=== PATIENT | male | born 1965 | race Caucasian/White ===

== ENCOUNTER 2017-03-22 15:27 | Emergency (ER) | payer OTHER ==
[2017-03-22 15:37] VITALS: BP 130/79; PULSE 73; RESP 16; TEMP 98.1; O2SAT 95
[2017-03-22] MEDS ORDERED: TDAP ADULT 0.5 ML INJ (BOOSTRIX) IM ONE (16:28)
--- NOTE | 2017-03-22 17:04 | EDPHY ---
H & P Time Seen by Provider: 03/22/17 16:10 HPI/ROS: CHIEF COMPLAINT: Left forearm laceration HISTORY OF PRESENT ILLNESS: 51-year-old male with out-of-date tetanus sustained accidental multiple lacerations to his left volar forearm when he was at a construction site, fell through the floor short distance but impact his left volar forearm against some sheet metal sustaining multiple lacerations and abrasions. No paresthesia. No sensory motor deficit distally. No foreign body sensation. No glass. PHYSICAL EXAM (Prior to examination, patient consented to physical exam, hands were washed and my usual and customary physical exam procedures followed) 1) GENERAL: Well-developed, well-nourished, alert and oriented. Appears to be in no acute distress. 2) HEAD: Normocephalic 3) HEENT: sclera anicteric 4) LUNGS: Breathing comfortably. 5) SKIN: multiple discrete lacerations 6) MUSCULOSKELETAL: left volar forearm multiple abrasions and 6 discrete lacerations the largest of which measures 3 cm %times% 2. 7) NEUROLOGIC: Radial ulnar median nerve function intact distally. There is no motor deficits distally. Distal pulses are brisk with brisk capillary refill normal color normal temperature distally Smoking Status: Never smoked Constitutional: Initial Vital Signs Temperature (C) 36.7 C 03/22/17 15:30 Heart Rate 73 03/22/17 15:30 Respiratory Rate 16 03/22/17 15:30 Blood Pressure 130/79 H 03/22/17 15:30 O2 Sat (%) 95 03/22/17 15:30 O2 Delivery Mode Room Air Allergies/Adverse Reactions: Penicillins Allergy (Intermediate, Verified 03/22/17 15:37) Hives Home Medications: Medication Instructions Recorded NK [No Known Home Meds] 03/22/17 MDM/Departure - MDM Procedures: Procedure: Laceration repair. I explained the indications, risks and benefits for both laceration repair and anesthetic administration. Verbal consent was obtained from the patient . The laceration on the left forearm were anesthetized using 0.5% bupivicaine with epinephrine . After anesthetic administered the patient was observed for a period of time and had no apparent adverse effects. The wound was cleaned, prepped, draped in normal sterile fashion and explored to its base. No foreign body seen, no foreign bodies palpated. There were no deep structures involved. No tendon injury was identified. The wounds were repaired with a total of 3 simple interrupted 4 0 Prolene sutures and combination of running 4 0 Prolene suture The wound repair was complex. The procedure was performed by myself. Patient has been informed that scarring will occur, although efforts have been made to minimize this. Medications Given: Discontinued Medications Diphtheria/Tetanus/Acell Pertussis (Boostrix) 0.5 ml IM .ONCE ONE Stop: 03/22/17 16:29 Last Admin: 03/22/17 16:40 Dose: 0.5 ml - Depart Disposition: Home, Routine, Self-Care Clinical Impression: Laceration of left forearm Qualifiers: Encounter type: initial encounter Qualified Code(s): S51.812A - Laceration without foreign body of left forearm, initial encounter Condition: Good Instructions: Laceration (ED) Additional Instructions: Return to the ER if you develop redness, swelling, discharge, warmth to the wound, red streaks going up your arm or leg, or any other symptoms that concern you. Referrals: Return, to the ER in 10 days for suture removal [Other] - As per Instructions
== END 2017-03-22 17:13 | disposition home or self-care (01) ==
PROC: 3E0234Z Introduction of Serum, Toxoid and Vaccine into Muscle, Percutaneous Approach (ICD-10-PCS; principal; 2017-03-22)
PROC: 0HQEXZZ Repair Left Lower Arm Skin, External Approach (ICD-10-PCS; principal; 2017-03-22)
DX: S51.812A Laceration without foreign body of left forearm, initial encounter (principal); Z23 Encounter for immunization; W01.198A Fall on same level from slipping, tripping and stumbling with subsequent striking against other object, initial encounter; Y99.8 Other external cause status; Y93.89 Activity, other specified